=== PATIENT | male | born 1995 | race Caucasian/White ===

== ENCOUNTER 2016-08-03 18:52 | Emergency (ER) | payer OTHER ==
[2016-08-03 19:01] VITALS: BP 114/51
[2016-08-03] MEDS ORDERED: diPHENhydraMINE PO* 25 MG PO ONE (19:05)
[2016-08-03] MEDS ORDERED: predniSONE TAB* 20 MG PO ONE (19:05)
[2016-08-03] MEDS ORDERED: EPINEPHrine AMP 1 MG/ML IM ONE (19:05)
[2016-08-03] MEDS ORDERED: Albuterol 2.5 MG/3 ML NEB.SOL* (0.083%) INH ONE (19:05)
[2016-08-03] MEDS ORDERED: EPINEPHrine AMP 1 MG/ML ONE (19:06)
[2016-08-03] MEDS ORDERED: Albuterol 2.5 MG/3 ML NEB.SOL* (0.083%) ONE (19:07)
--- NOTE | 2016-08-03 19:39 | UC ---
Allergic Reaction HPI - HPI Summary HPI Summary: 21 yo male with the onset of wheezing /eyelid angio edema and hives sooner after taking advil Had similar but less severe reaction with aleve last week has has a mild uri and sore throat - History of Current Complaint Chief Complaint: UCAllergicReaction Stated Complaint: ALLERGIC REACTION Time Seen by Provider: 08/03/16 19:02 Hx Obtained From: Patient Onset/Duration: Sudden Onset, Lasting Minutes Severity Initially: Moderate Severity Currently: Moderate Pain Intensity: 0 Pain Scale Used: 0-10 Numeric Location: Diffuse Character: Swelling - eye lids, Pruritus, Hives Aggrevating Factor(s): OTC Meds Alleviating Factor(s): Nothing Associated Signs And Symptoms: Positive: Cough Wheezing, Rash - Related Hx Possible Reaction To: Medications - Allergies/Home Medications Allergies/Adverse Reactions: Allergies Allergy/AdvReac Type Severity Reaction Status Date / Time Naproxen [From Naprosyn] Allergy Severe HIVES, Verified 08/03/16 19:04 DIFFICULTY BREATHING Home Medications: Home Medications Cetirizine* [ZyrTEC*] 10 mg PO PRN 08/03/16 [History] Citalopram TAB* [Celexa TAB*] 08/03/16 [History] PMH/Surg Hx/FS Hx/Imm Hx Endocrine History Of: Denies: Diabetes, Thyroid Disease, Hyperthyroidism, Hypothyroidism, Dyslipidemia Cardiovascular History Of: Denies: Cardiac Disorders, Hypertension, Pacemaker/ICD, Myocardial Infarction , Congestive Heart Failure, Atrial Fibrillation, Deep Vein Thrombosis, Bleeding Disorders Respiratory History Of: Denies: COPD, Asthma, Bronchitis, Pneumonia, Pulmonary Embolism GI/ History Of: Denies: Gastroesophageal Reflux, Ulcer, Gastrointestinal Bleed, Gall Bladder Disease, Kidney Stones, Diverticulitis, Renal Disease, Urosepsis Neurological History Of: Denies: TIA, CVA, Dementia, Seizures, Migraine Psychological History Of: Denies: Anxiety, Depression, Bipolar Disorder, Schizophrenia, Post Traumatic Stress Disorder Cancer History Of: Denies: Lung Cancer, Colorectal Cancer, Breast Cancer, Prostate Cancer, Cervical Cancer Other History Of: Negative For: HIV, Hepatitis B, Hepatitis C, Anticoagulant Therapy - Surgical History Surgical History: Yes Surgery Procedure, Year, and Place: wisdom Teeth - Family History Known Family History: Positive: Hypertension - Social History Alcohol Use: Occasionally Substance Use Type: None Smoking Status (MU): Never Smoked Tobacco Review of Systems Constitutional: Negative Skin: Rash Eyes: Negative ENT: Negative Respiratory: Cough, Other - wheezing Cardiovascular: Negative Gastrointestinal: Negative Genitourinary: Negative Motor: Negative Neurovascular: Negative Musculoskeletal: Negative Neurological: Negative Psychological: Negative All Other Systems Reviewed And Are Negative: Yes Physical Exam Triage Information Reviewed: Yes Appearance: Well-Appearing, No Pain Distress, Well-Nourished Vital Signs: Initial Vital Signs Temp 97 F 08/03/16 18:56 Pulse 78 08/03/16 18:56 Resp 16 08/03/16 18:56 BP 114/51 08/03/16 18:56 Pulse Ox 94 08/03/16 18:56 Vital Signs Reviewed: Yes Eyes: Positive: Conjunctiva Clear ENT: Positive: Hearing grossly normal, Pharynx normal, TMs normal. Negative: Nasal congestion, Nasal drainage, Trismus, Muffled/hoarse voice Neck: Positive: Supple, Nontender, No Lymphadenopathy Respiratory: Positive: No respiratory distress, No accessory muscle use, Wheezing Cardiovascular: Positive: RRR, No Murmur Musculoskeletal: Positive: ROM Intact, No Edema Neurological: Positive: Alert Psychological Exam: Normal Skin: Positive: rashes - hives, Other - angioedema of eyelid L>R Diagnostics - Laboratory Diagnostic Studies Completed/Ordered: pox 94 % comment: low normal Re-Evaluation - Re-Evaluation First Eval Re-Evaluation Time: 19:48 Change: Improved - lungs clear/decreased hives and itching Allergic Reaction Course/Dx - Differential Dx/Diagnosis Provider Diagnoses: angioedema/hives Discharge - Discharge Plan Condition: Stable Disposition: HOME Prescriptions: Prednisone [Deltasone] 40 mg PO DAILY #8 tab Patient Education Materials: Urticaria (ED), Angioedema (ED) Referrals: Eduardo Nicholas MD [Medical Doctor] - 2 Weeks Additional Instructions: benadryl (OTC) 25 mg 2 pills 4x day as needed for wheezing use your inhaler as directed if needed return for new or worsening symptoms you are allergic to ibuprofen (advil) and naproxen (aleve) you may be allergic to other NSAIDs (non steroidal anti inflammatory Drugs) you may be allergic to aspirin I suggest you see an assistant customer service manager
== END 2016-08-03 19:50 | disposition home or self-care (01) ==
LOC: UCEAST 18:52
DX: T78.3XXA Angioneurotic edema, initial encounter (principal); Z88.6 Allergy status to analgesic agent
CPT/HCPCS: 96372; 99213; A9270-GY; G0463; J0171; J7512

== ENCOUNTER 2016-09-17 07:10 | Emergency (ER) | payer OTHER ==
[2016-09-17] MEDS ORDERED: Ibuprofen TAB* 600 MG PO ONE (07:27)
--- NOTE | 2016-09-17 07:31 | UC ---
Hand/Wrist HPI - HPI Summary HPI Summary: LAST NIGHT TRIPPED OVER A CHAIR AND FELL AGAINST THE WALL. STRUCK RIGHT HAND AND NOW HAS PAIN AND SWELLING. - History Of Current Complaint Chief Complaint: UCUpperExtremity Stated Complaint: HAND INJURY Time Seen by Provider: 09/17/16 07:23 Hx Obtained From: Patient Onset/Duration: Sudden Onset, Lasting Hours, Still Present Severity Initially: Moderate Severity Currently: Severe Pain Intensity: 9 Pain Scale Used: 0-10 Numeric Character Of Pain: Sharp Aggravating Factor(s): Movement Alleviating: Rest, Ice, OTC Meds - IBUPROFEN Associated Signs And Symptoms: Positive: Swelling, Bruising Related History: Dominant Hand Right - Allergies/Home Medications Allergies/Adverse Reactions: Allergies Allergy/AdvReac Type Severity Reaction Status Date / Time Naproxen [From Naprosyn] Allergy Severe HIVES, Verified 09/17/16 07:19 DIFFICULTY BREATHING Home Medications: Home Medications Citalopram TAB* [Celexa TAB*] 1 DAILY 09/17/16 [History] PMH/Surg Hx/FS Hx/Imm Hx Previously Healthy: Yes - Surgical History Surgical History: Yes Surgery Procedure, Year, and Place: wisdom Teeth - Family History Known Family History: Positive: Hypertension - Social History Alcohol Use: Occasionally Substance Use Type: None Smoking Status (MU): Never Smoked Tobacco Review of Systems Constitutional: Negative Skin: Bruising Respiratory: Negative Cardiovascular: Negative Gastrointestinal: Negative Musculoskeletal: Arthralgia, Decreased ROM, Edema All Other Systems Reviewed And Are Negative: Yes Physical Exam Triage Information Reviewed: Yes Appearance: Well-Appearing, Well-Nourished, Pain Distress - mild Vital Signs: Initial Vital Signs Temp 98.2 F 09/17/16 07:12 Pulse 85 09/17/16 07:12 Resp 18 09/17/16 07:12 BP 137/70 09/17/16 07:12 Pulse Ox 95 09/17/16 07:12 Vital Signs Reviewed: Yes Eyes: Positive: Conjunctiva Clear ENT: Positive: Hearing grossly normal Neck: Positive: Supple Respiratory: Positive: No respiratory distress, No accessory muscle use Cardiovascular: Positive: Pulses Normal Abdomen Description: Positive: Soft Musculoskeletal: Positive: ROM Limited @ - RIGHT WRIST, Edema @ - RIGHT HAND OVERLYING 4TH AND 5TH METACARPALS, Other: - TTP 4TH AND 5TH PROXIMAL METACARPALS Neurological: Positive: Alert Psychological: Positive: Age Appropriate Behavior Skin: Positive: Other - BRUISING OVER 4TH AND 5TH METACARPALS. Negative: rashes Diagnostics - Radiology RIGHT HAND XRAY Xray Interpretation: Positive (See Comments) - PROBABLE FRACTURE OF THE HAMATE BONE Radiology Interpretation Completed By: Radiologist RIGHT UPPER EXTREMITY CT Xray Interpretation: Positive (See Comments) - 1. OBLIQUE SLIGHTLY COMMINUTED DISPLACED INTRA-ARTICULAR OF THE HAMATE BONE. 2. OBLIQUE MINIMALLY DISPLACED INTRA-ARTICULAR FRACTURE OF THE CAPITATE BONE. Radiology Interpretation Completed By: Radiologist Hand/Wrist Course/Dx - Course Course Of Treatment: SPLINT APPLIED. VICODIN ERX SENT. PT IS LEAVING FOR THE [facility] ON TUESDAY (IN 2 DAYS) SO WILL NOT BE HERE TO F/U WITH [facility]. I CALLED [facility] - DR. WHEATLEY WILL SEE HIM TODAY. PT TO GO TO THEIR OFFICE DIRECTLY FROM HERE. - Differential Dx/Diagnosis Provider Diagnoses: 1. OBLIQUE SLIGHTLY COMMINUTED DISPLACED INTRA-ARTICULAR OF THE HAMATE BONE. 2. OBLIQUE MINIMALLY DISPLACED INTRA-ARTICULAR FRACTURE OF THE CAPITATE BONE. - Physician Notifications Discussed Patient Care With: DR. STEVAN GUNDERSON ([facility]) Time Discussed With Above Provider: 09:32 - AGREE WITH SPLINT AND [facility] F/U EARLY NEXT WEEK Discharge - Discharge Plan Condition: Stable Disposition: HOME Prescriptions: Hydrocodone-Acetaminophen [Lorcet 5-325 mg] 1 tab PO QID PRN #20 tab MDD 4 PRN Reason: Pain Patient Education Materials: Wrist Fracture in Adults (ED) Referrals: [facility] MARII Watt [Primary Care Provider] - If Needed Additional Instructions: XRAY SHOWS YOU HAVE BROKEN 2 OF THE BONES IN YOUR WRIST: 1. OBLIQUE SLIGHTLY COMMINUTED DISPLACED INTRA-ARTICULAR OF THE HAMATE BONE. 2. OBLIQUE MINIMALLY DISPLACED INTRA-ARTICULAR FRACTURE OF THE CAPITATE BONE. GO DIRECTLY TO [facility] FROM HERE FOR FURTHER EVALUATION AND MANAGEMENT.
--- NOTE | 2016-09-17 08:15 | RAD ---
INDICATION: Right hand injury. TECHNIQUE: 4 views of the right hand were obtained. FINDINGS: There is soft tissue swelling present dorsal to the carpal and proximal metacarpal bones. There appears to be a fracture fragment which is present adjacent to the base of the fifth metacarpal and hamate bone likely arising from the hamate bone. IMPRESSION: PROBABLE FRACTURE OF THE HAMATE BONE. THIS COULD BE FURTHER EVALUATED WITH A CT OF THE WRIST.
[2016-09-17 09:16] VITALS: BP 141/73
--- NOTE | 2016-09-17 09:22 | RAD ---
INDICATION: Trauma. COMPARISON: Comparison is made with a prior x-ray study of the right hand of the same date. TECHNIQUE: Contiguous axial sections were obtained of the right wrist. Images were reconstructed in the sagittal and coronal planes. FINDINGS: There is a linear oblique fracture extending through the posterior distal corner of the capitate bone. The fracture extends to the distal articular margin. The fracture fragment is displaced slightly posterior approximately 1.5 mm. In addition, there is an oblique slightly comminuted fracture extending through the posterior distal corner of the hamate bone. The fracture extends to the distal articular margin and is displaced posterior approximately 5 mm posterior. IMPRESSION: 1. OBLIQUE SLIGHTLY COMMINUTED DISPLACED INTRA-ARTICULAR OF THE HAMATE BONE. 2. OBLIQUE MINIMALLY DISPLACED INTRA-ARTICULAR FRACTURE OF THE CAPITATE BONE.
== END 2016-09-17 10:20 | disposition home or self-care (01) ==
LOC: UCEAST 07:10
DX: S62.141A Displaced fracture of body of hamate [unciform] bone, right wrist, initial encounter for closed fracture (principal); S62.131A Displaced fracture of capitate [os magnum] bone, right wrist, initial encounter for closed fracture; W18.09XA Striking against other object with subsequent fall, initial encounter; Z88.6 Allergy status to analgesic agent
CPT/HCPCS: 99213; A9270-GY; G0463

== ENCOUNTER → 2016-09-29 10:24 | Day surgery (SDC) | payer OTHER ==
[~2016-09-29 10:24] MED LIST: Buffered Lidocaine 1% SYRIN* 3 ML/SYR SYRINGE INTRADERM ONE; Bupivacaine 0.25% SDV* 30 ML ONE; Bupivacaine 0.5% W/EPI SDV* 30 ML VIAL ONE; Dexamethasone IV* 4 MG/ML 1 ML (4 MG) IV SLOW PU ONE; Dexamethasone IV* 4 MG/ML 1 ML (4 MG) ONE; DiMENhydriNATE IV* 50 MG/ML VIAL IV PUSH PRN; Famotidine IV* 10 MG/ML 2 ML (20 mg) IV ONE; Famotidine IV* 10 MG/ML 2 ML (20 mg) ONE; HYDROmorphone* 1 MG/ML 1 ML SYR IV PRN; HYDROmorphone* 1 MG/ML 1 ML SYR ONE; Ketorolac INJ* 30 MG/ML 1 ML VIAL ONE; Lidocaine 2% PF* 5 ML VIAL ONE; Midazolam* 1 MG/ML 2 ML VIAL (2 MG) ONE; Ondansetron INJ* 2 MG/ML VIAL IV PRN; Ondansetron INJ* 2 MG/ML VIAL ONE; PROCHLORPERAZINE INJ 5 MG/ML 2 ML VIAL IV PRN; Propofol* 10 MG/ML 20 ML BTL IV PUSH ONE; Scopolamine 1.5 mg* PATCH TRANSDERM PRN; Scopolomine PATCH Remove* 1 NOTE MISC PATCH OFF ONE; ceFAZolin 2 GM PREMIX(*) 2 GM/50 ML BAG IVPB ONE; fentaNYL* 50 MCG/ML 2 ML VIAL (100 MCG VIAL) IV PRN; fentaNYL* 50 MCG/ML 2 ML VIAL (100 MCG VIAL) ONE
[2016-09-29 15:27] VITALS: BP 133/69
--- NOTE | 2016-09-29 21:57 | RAD ---
CPT II Codes: 6045F. Indication: Hamate fracture in the right wrist. Fluoroscopic services provided for referring physician. 28 seconds of fluoroscopy time was used. 7 spot images are reviewed. IMPRESSION: Fluoroscopic services provided for referring physician for internal fixation.
--- NOTE | 2016-09-30 12:35 | OP ---
DATE OF OPERATION: 09/29/16 - [facility] DATE OF : 89 SURGEON: Sha Light MD SHUTTLELESS LOOM WEAVER: JUSTYNA De León ANESTHESIOLOGIST: Dr. Nicholas. ANESTHESIA: Supraclavicular block with general. PRE-OP DIAGNOSES: Right displaced hamate body fracture and minimally displaced dorsal capitate rim fracture. POST-OP DIAGNOSES: Right displaced hamate body fracture and minimally displaced dorsal capitate rim fracture. OPERATIVE PROCEDURE: 1. Open reduction internal fixation, right hamate body fracture. 2. Closed treatment, right capitate fracture. INDICATIONS: Earnest a week and a half ago had the fracture. He had gone to [facility] for a week for spring. He now has returned and given the degree of displacement, which at some location is 5 mm, we elected to proceed with open reduction internal fixation of the hamate body fracture. He understands the risks of stiffness, dorsal cutaneous sensory nerve injuries, and pain. He elected to proceed. ESTIMATED BLOOD LOSS: 5 mL. COMPLICATIONS: None. FINDINGS: As expected. DESCRIPTION OF PROCEDURE: Earnest was seen in the preoperative holding area and the correct side, site, and procedure were identified. He got the block and then we came back to the operating room where anesthesia was induced. The arm was prepped and draped in the usual fashion. A formal time-out was performed. I began by making a S-shaped incision over the dorsal hamate. Dissection was carried down and full-thickness flaps were raised off the paratenon to preserve the dorsal cutaneous sensory nerves. The interval between the 4th and the 5th dorsal compartment tendons was utilized to take this down to the dorsal capsule. I then longitudinally opened the 4th and 5th carpometacarpal joint capsules. I went ahead and raised a full thickness flaps off the capsule and off the dorsum of the hamate to expose the fracture. I did take care to preserve the dorsal intermetacarpal ligament which was intact. Once I could see the joint and the fracture, I went ahead and cleaned out all the soft callus and got some clean healthy bone edges. I went ahead, then anatomically reduced and pinned the fracture. At this point, I went ahead and checked fluoroscopy and was very satisfied with the alignment, both clinically and fluoroscopically. I then placed one 2.0-mm slightly countersunk lag screw and got excellent compression. I then placed another 1.5-mm lag screw a little bit more proximal to this and then a little bit more ulnar. I placed a third 1.5- mm lag screw in standard fashion. The alignment was excellent. The compression and purchase of all the screws was excellent. I went ahead and pulled some distraction through the carpometacarpal joint, and the reduction of the joint surface was excellent. Therefore, I irrigated out the wound. I looked fluoroscopically and as expected, the capitate was very nicely lined up. Therefore, I decided to leave this alone and treat it closed. I then used some 4-0 Polysorb suture to close the capsular layer and all the screws were completely covered. The capsule of the carpometacarpal joint was similarly closed. I then irrigated out the wound and then closed the skin with some 4-0 nylon horizontal mattress sutures. The wound was then dressed with Xeroform, 4x4, and a volar plaster splint was applied, which stopped just distal to the metacarpophalangeal joint. Tourniquet was then deflated. The arm then exsanguinated and the tourniquet inflated to 250 mmHg prior to making an incision. Tourniquet time was just a bit more than an hour. He was then woken up and taken to the recovery room in stable condition. [id number]/[facility] #: [id number] AILEEN
== END | disposition home or self-care (01) ==
LOC: OR 10:24
PROVIDERS: ATTEND Orthopaedic Surgery Hand Surgery
DX: S62.141A Displaced fracture of body of hamate [unciform] bone, right wrist, initial encounter for closed fracture (principal); S62.131A Displaced fracture of capitate [os magnum] bone, right wrist, initial encounter for closed fracture; W22.8XXA Striking against or struck by other objects, initial encounter; Y93.9 Activity, unspecified; Y92.9 Unspecified place or not applicable
CPT/HCPCS: 76001; C1713; J0690; J1100; J1170; J1885; J2250; J2405; J2704; J3010